=== PATIENT | male | born 1945 | race Caucasian/White ===

== ENCOUNTER → 2020-08-15 | Outpatient (CLI) | payer MEDICARE | END | disposition home or self-care (01) | LOC: CARD 12:41 | PROVIDERS: ATTEND Specialist | DX: R00.1 Bradycardia, unspecified (principal); G60.9 Hereditary and idiopathic neuropathy, unspecified | CPT/HCPCS: 93005 ==

== ENCOUNTER 2021-02-19 12:33 | Emergency (ER) | payer MEDICARE ==
[~2021-02-19] VITALS: Ht 175.3 cm; Wt 83.0 kg
--- NOTE | 2021-02-19 12:53 | NUR ---
SYMPTOMS BEGAN WEDNESDAY. PT WAS HAVING TROUBLE SPEAKING SINCE YESTERDAY. PT CANT REMEMBER NAME, BIRTHDAY AND WAS TRYING TO OPEN DOOR INSTEAD OF ROLLING DOWN WINDOW. PT HAS TROUBLE EXPRESSING WHAT HE WANTS TO SAY. REPORTS VISION CHANGES, TROUBLE SWALLOWING, UNSTEADY AMBULATION. . DENIES HEADACHE, CP HX OF STROKE IN 2013.
[2021-02-19] MEDS ORDERED: SODIUM CHLORIDE FLUSH 10ML SYR IVF ONE (13:00)
[2021-02-19 13:07] LABS: BASOPHILS % (AUTO) 1 % (0-1); EOSINOPHILS % (AUTO) 1 % (1-7); LYMPHOCYTES % (AUTO) 30 % (22-44); MEAN CORPUSCULAR HEMOGLOBIN 30.4 pg (27.5-34.5); MEAN CORPUSCULAR HGB CONC 33.3 g/dL (33.2-36.2); MEAN PLATELET VOLUME 8.4 fL (7.4-10.4); MONOCYTES % (AUTO) 12 % (2-9); NEUTROPHILS % (AUTO) 57 % (42-75); PLATELET COUNT 252 x10^3/uL (130-400); RED BLOOD COUNT 4.66 x10^6/uL (4.38-5.82); RED CELL DISTRIBUTION WIDTH 14.3 % (9.4-14.8)
[2021-02-19 13:09] LABS: MD NO
--- NOTE | 2021-02-19 13:10 | NUR ---
PT OFF UNIT IN IMAGING.
[2021-02-19 13:18] LABS: ALANINE AMINOTRANSFERASE 24 U/L (12-78); ALBUMIN 3.8 g/dL (3.4-5.0); ANION GAP 2 mmol/L (5-15); CALCIUM 8.8 mg/dL (8.5-10.1); CHLORIDE 101 mmol/L (98-107)
[2021-02-19 13:23] LABS: ALKALINE PHOSPHATASE 108 U/L (45-117); BILIRUBIN,TOTAL 0.3 mg/dL (0.2-1.0); CREATININE 0.82 mg/dL (0.7-1.3); TOTAL PROTEIN 7.2 g/dL (6.4-8.2); TROPONIN I < 0.015 ng/mL (0.000-0.045)
--- NOTE | 2021-02-19 13:54 | NUR ---
straight catheter performed. obtained ua. pt was able to swallow 90 ml of water. tolerated well. pt off unit now headed to imaging
[2021-02-19 14:00] LABS: MICROSCOPIC NOT IND
[2021-02-19 16:08] VITALS: BP 127/85
--- NOTE | 2021-02-19 16:12 | NUR ---
DR GARCIA AT BEDSIDE
[2021-02-19 16:15] LABS: SALICYLATE LEVEL 1.9 mg/dL (2.8-20.0)
[2021-02-19 16:15] LABS: AMPHETAMINE SCREEN, URINE Negative (Negative); BARBITURATE SCREEN, URINE Negative (Negative); BENZODIAZEPINE SCREEN, URINE Negative (Negative); CANNABINOID SCREEN, URINE Negative (Negative); COCAINE SCREEN, URINE Negative (Negative); METHADONE SCREEN, URINE Positive (Negative); OPIATE SCREEN, URINE Negative (Negative)
[2021-02-19 16:43] LABS: FREE T4 (FREE THYROXINE) 1.19 ng/dL (0.76-1.46)
--- NOTE | 2021-02-19 17:07 | NUR ---
PT LEFT AMA AFTER SPEAKING TO MD. UNABLE TO GET LAST SET OF VITALS. PT SIGNED AMA FORM
[2021-02-20] MEDS ORDERED: SIMV10TA18 PO (00:42)
[2021-02-20] MEDS ORDERED: METH10TA3 PO (00:42)
[2021-02-20] MEDS ORDERED: PREG50CA58 PO (00:42)
[2021-02-20] MEDS ORDERED: DOCU-131 PO (01:28)
[2021-02-21] MEDS ORDERED: LEVE500T53 PO (09:36)
== END 2021-02-19 17:09 | disposition left against medical advice (07) ==
LOC: ED 13:47 → SUATTDRO 16:02 → EDIP 16:03 → UNDOADMIN 16:03 → ED 17:03
PROVIDERS: ATTEND Family Medicine
DX: R47.89 Other speech disturbances (principal); R51.9 Headache, unspecified; R06.89 Other abnormalities of breathing; R00.1 Bradycardia, unspecified
CPT/HCPCS: 70450; 70551; 71045; 80053; 80299; 80307; 80320; 80329; 81003; 82140; 82962; 84439; 84443; 84481; 84484; 85025; 93005; 99285; G0480

== ENCOUNTER 2021-02-24 05:30 | Inpatient (IN) | payer MEDICARE ==
[~2021-02-24] VITALS: Ht 172.7 cm; Wt 74.0 kg
[~2021-02-24 05:30] MED LIST: DOCU-131 PO; LEVE500T53 PO; METH10TA3 PO; PREG50CA58 PO; SIMV10TA18 PO
--- NOTE | 2021-02-24 05:55 | NUR ---
PT CAME IN WITH . COMPLAINT OF INCREASED NUMBER OF SEIZURE ACTIVITY AND HALLUCINATIONS. PT WAS D/C FROM HOSPITAL ON Wednesday02/21/21. PT COMPLAIN OF RIVAS AND CONSTIPATION WELL. PT HOOKED UP TO ALL MONITORS, RESTING COMFORTABLY ON GURNEY
[2021-02-24] MEDS ORDERED: LORazepam 2 MG/ML, 1ML IV ONE (06:00)
[2021-02-24] MEDS ORDERED: SODIUM CHLORIDE FLUSH 10ML SYR IVF ONE (06:00)
--- NOTE | 2021-02-24 06:16 | NUR ---
PT GOT A 20 G IV IN THE LEFT AC, LABS WERE DRAWN WHEN IV WAS PLACED. PT WAS TAKEN TO RADIOLOGY FOR CT AND XRAY BY TRANSPORT.
[2021-02-24 06:33] LABS: BASOPHILS % (AUTO) 1 % (0-1); EOSINOPHILS % (AUTO) 2 % (1-7); LYMPHOCYTES % (AUTO) 28 % (22-44); MEAN CORPUSCULAR HEMOGLOBIN 30.3 pg (27.5-34.5); MEAN CORPUSCULAR HGB CONC 33.3 g/dL (33.2-36.2); MEAN PLATELET VOLUME 8.2 fL (7.4-10.4); MONOCYTES % (AUTO) 9 % (2-9); NEUTROPHILS % (AUTO) 62 % (42-75); PLATELET COUNT 277 x10^3/uL (130-400); RED BLOOD COUNT 5.07 x10^6/uL (4.38-5.82); RED CELL DISTRIBUTION WIDTH 14.5 % (9.4-14.8)
[2021-02-24 06:38] LABS: MD NO
[2021-02-24 06:40] LABS: ALANINE AMINOTRANSFERASE 26 U/L (12-78); ALBUMIN 3.9 g/dL (3.4-5.0); ANION GAP 5 mmol/L (5-15); CALCIUM 8.9 mg/dL (8.5-10.1); CHLORIDE 100 mmol/L (98-107); CREATININE 0.87 mg/dL (0.7-1.3)
--- NOTE | 2021-02-24 06:42 | NUR ---
PT BLADDER SCANNED, >667 ML MEAUSURED
--- NOTE | 2021-02-24 06:49 | NUR ---
Report received from JOHN San and JOHN Lamar with care assumed.
[2021-02-24 07:06] LABS: ALKALINE PHOSPHATASE 118 U/L (45-117); BILIRUBIN,TOTAL 0.7 mg/dL (0.2-1.0); TOTAL PROTEIN 7.4 g/dL (6.4-8.2)
--- NOTE | 2021-02-24 07:10 | NUR ---
Pt straight cathed with sterile technique with 16F kit and 1000mL uop obtained. Sample sent for UA. Admitting MD arrived at bedside just as cath was completed and is present for assessment at this time. Witnessed sz activity during cath procedure by this RN. Pt with head turned and looking up to the R without other symptoms. Sz lasted approximately 20 seconds with ability to speak during and after but disoriented. states this is a normal progression of his sz activity. Possible constipation reported but not confirmed, and pt unable to answer accurately. Noted SB at 53 on monitor without ectopy with HTN present and denies any pain.
[2021-02-24] MEDS ORDERED: POLYETHYLENE GLYCOL 17 GM PACKET PO PRN (07:30)
[2021-02-24] MEDS ORDERED: ACETAMINOPHEN 325 MG TABLET PO PRN (07:30)
[2021-02-24 07:31] LABS: MICROSCOPIC NOT IND
--- NOTE | 2021-02-24 07:31 | NUR ---
Report given to Ashley RN and pt readied for transport to floor.
[2021-02-24] MEDS ORDERED: ASPI-963 PO (07:33)
[2021-02-24] MEDS ORDERED: OMEG-14 PO (07:33)
[2021-02-24 07:47] LABS: C-REACTIVE PROTEIN, QUANT 0.07 mg/dL (0.02-0.49)
[2021-02-24 08:25] VITALS: BP 176/88
[2021-02-24 08:42] VITALS: BP 148/71
[2021-02-24] MEDS ORDERED: LEVETIRACETAM 500 MG TABLET PO SCH ×2 (09:00→11:00)
[2021-02-24] MEDS: ASPIRIN 81 MG TABLET EC PO SCH (09:36)
[2021-02-24] MEDS: SENNA/DOCUSATE TABLET PO SCH (09:37)
[2021-02-24] MEDS: METHADONE 10 MG TABLET PO SCH ×2 (09:37→20:50)
[2021-02-24 10:15] LABS: AMPHETAMINE SCREEN, URINE Negative (Negative); BARBITURATE SCREEN, URINE Negative (Negative); BENZODIAZEPINE SCREEN, URINE Negative (Negative); CANNABINOID SCREEN, URINE Negative (Negative); COCAINE SCREEN, URINE Negative (Negative); METHADONE SCREEN, URINE Positive (Negative); OPIATE SCREEN, URINE Negative (Negative)
[2021-02-24] MEDS ORDERED: PINK LADY ENEMA 490 ML BOTTLE PR ONE (11:00)
[2021-02-24 13:00] VITALS: BP 131/84
[2021-02-24] MEDS ORDERED: GADOTERATE 7.5 MMOL/15ML SYR ONE (15:13)
[2021-02-24 18:19] VITALS: BP 153/73
[2021-02-24] MEDS: MAGNESIUM CITRATE 300ML ORAL SOL PO PRN (18:41)
[2021-02-24] MEDS: PREGABALIN 50 MG CAP PO SCH (20:50)
[2021-02-24] MEDS: SIMVASTATIN 10 MG TABLET PO SCH (20:50)
[2021-02-24] MEDS: LEVETIRACETAM 500 MG TABLET PO SCH (20:51)
[2021-02-25] MEDS: MAGNESIUM CITRATE 300ML ORAL SOL PO PRN (00:10)
[2021-02-25 00:41] VITALS: BP 106/64
[2021-02-25 07:24] VITALS: BP 96/66
[2021-02-25] MEDS: SENNA/DOCUSATE TABLET PO SCH (09:00)
[2021-02-25] MEDS: METHADONE 10 MG TABLET PO SCH ×2 (09:54→20:42)
[2021-02-25] MEDS: ASPIRIN 81 MG TABLET EC PO SCH (09:54)
[2021-02-25] MEDS: LEVETIRACETAM 500 MG TABLET PO SCH ×2 (09:55→20:42)
[2021-02-25] MEDS: DOCUSATE 100 MG CAPSULE PO SCH ×2 (11:50→20:36)
[2021-02-25] MEDS: ENOXAPARIN 40 MG/0.4 ML SQ SCH (11:50)
[2021-02-25] MEDS: POLYETHYLENE GLYCOL 17 GM PACKET PO SCH (11:51)
[2021-02-25 14:05] VITALS: BP 105/60
[2021-02-25 18:54] VITALS: BP 130/65
[2021-02-25] MEDS: SIMVASTATIN 10 MG TABLET PO SCH (20:42)
[2021-02-25] MEDS: PREGABALIN 50 MG CAP PO SCH (20:42)
[2021-02-26 00:08] VITALS: BP 102/65
[2021-02-26 05:48] LABS: BASOPHILS % (AUTO) 0 % (0-1); EOSINOPHILS % (AUTO) 3 % (1-7); LYMPHOCYTES % (AUTO) 44 % (22-44); MEAN CORPUSCULAR HEMOGLOBIN 30.2 pg (27.5-34.5); MEAN CORPUSCULAR HGB CONC 32.8 g/dL (33.2-36.2); MEAN PLATELET VOLUME 8.3 fL (7.4-10.4); MONOCYTES % (AUTO) 11 % (2-9); NEUTROPHILS % (AUTO) 42 % (42-75); PLATELET COUNT 274 x10^3/uL (130-400); RED BLOOD COUNT 4.77 x10^6/uL (4.38-5.82); RED CELL DISTRIBUTION WIDTH 14.7 % (9.4-14.8)
[2021-02-26 05:49] LABS: MD NO
[2021-02-26 06:03] LABS: CHLORIDE 104 mmol/L (98-107)
[2021-02-26 06:20] LABS: ALANINE AMINOTRANSFERASE 23 U/L (12-78); ALBUMIN 3.2 g/dL (3.4-5.0); ALKALINE PHOSPHATASE 97 U/L (45-117); ANION GAP 3 mmol/L (5-15); BILIRUBIN,TOTAL 0.6 mg/dL (0.2-1.0); CALCIUM 8.1 mg/dL (8.5-10.1); CREATININE 1.02 mg/dL (0.7-1.3); T4 (THYROXINE) 7.9 mcg/dL (4.5-12.1); TOTAL PROTEIN 6.1 g/dL (6.4-8.2)
[2021-02-26 06:58] VITALS: BP 100/65
[2021-02-26] MEDS: METHADONE 10 MG TABLET PO SCH ×2 (07:52→21:19)
[2021-02-26] MEDS: ASPIRIN 81 MG TABLET EC PO SCH (07:52)
[2021-02-26] MEDS: POLYETHYLENE GLYCOL 17 GM PACKET PO SCH (07:52)
[2021-02-26] MEDS: LEVETIRACETAM 500 MG TABLET PO SCH ×2 (07:52→21:19)
[2021-02-26] MEDS: SENNA/DOCUSATE TABLET PO SCH (09:00)
[2021-02-26] MEDS: DOCUSATE 100 MG CAPSULE PO SCH ×2 (09:00→21:19)
[2021-02-26] MEDS: ENOXAPARIN 40 MG/0.4 ML SQ SCH (11:21)
[2021-02-26 13:04] VITALS: BP 101/65
[2021-02-26 20:06] VITALS: BP 108/69
[2021-02-26 20:16] VITALS: BP 147/62
[2021-02-26] MEDS: SIMVASTATIN 10 MG TABLET PO SCH (21:19)
[2021-02-26] MEDS: PREGABALIN 50 MG CAP PO SCH (21:19)
[2021-02-27 00:58] VITALS: BP 139/57
[2021-02-27 08:07] VITALS: BP 112/72
[2021-02-27] MEDS: DOCUSATE 100 MG CAPSULE PO SCH ×2 (09:47→21:31)
[2021-02-27] MEDS: SENNA/DOCUSATE TABLET PO SCH (09:48)
[2021-02-27] MEDS: LEVETIRACETAM 500 MG TABLET PO SCH ×2 (09:50→21:32)
[2021-02-27] MEDS: ASPIRIN 81 MG TABLET EC PO SCH (09:51)
[2021-02-27] MEDS: METHADONE 10 MG TABLET PO SCH ×2 (09:51→21:31)
[2021-02-27] MEDS: POLYETHYLENE GLYCOL 17 GM PACKET PO SCH (09:52)
[2021-02-27] MEDS: ENOXAPARIN 40 MG/0.4 ML SQ SCH (11:00)
[2021-02-27 13:55] VITALS: BP 133/78
[2021-02-27 19:25] VITALS: BP 130/71
[2021-02-27] MEDS: SIMVASTATIN 10 MG TABLET PO SCH (21:31)
[2021-02-27] MEDS: PREGABALIN 50 MG CAP PO SCH (21:31)
[2021-02-28 01:24] VITALS: BP 110/63
[2021-02-28 07:10] VITALS: BP 122/69
[2021-02-28] MEDS: METHADONE 10 MG TABLET PO SCH ×2 (08:47→20:51)
[2021-02-28] MEDS: ASPIRIN 81 MG TABLET EC PO SCH (08:48)
[2021-02-28] MEDS: DOCUSATE 100 MG CAPSULE PO SCH ×2 (08:48→20:52)
[2021-02-28] MEDS: POLYETHYLENE GLYCOL 17 GM PACKET PO SCH (08:49)
[2021-02-28] MEDS: LEVETIRACETAM 500 MG TABLET PO SCH ×2 (08:49→20:51)
[2021-02-28] MEDS: SENNA/DOCUSATE TABLET PO SCH (08:50)
[2021-02-28] MEDS: ENOXAPARIN 40 MG/0.4 ML SQ SCH (11:00)
[2021-02-28 12:19] VITALS: BP 150/79
[2021-02-28] MEDS ORDERED: LEVE500T53 PO (13:08)
[2021-02-28 19:44] VITALS: BP 135/75
[2021-02-28] MEDS: SIMVASTATIN 10 MG TABLET PO SCH (20:51)
[2021-02-28] MEDS: PREGABALIN 50 MG CAP PO SCH (20:51)
[2021-03-01 01:30] VITALS: BP 150/85
[2021-03-01 06:45] VITALS: BP 129/67
[2021-03-01] MEDS: POLYETHYLENE GLYCOL 17 GM PACKET PO SCH (10:53)
[2021-03-01] MEDS: ENOXAPARIN 40 MG/0.4 ML SQ SCH (10:54)
[2021-03-01] MEDS: LEVETIRACETAM 500 MG TABLET PO SCH ×2 (10:54→20:41)
[2021-03-01] MEDS: ASPIRIN 81 MG TABLET EC PO SCH (10:54)
[2021-03-01] MEDS: DOCUSATE 100 MG CAPSULE PO SCH ×2 (10:55→20:40)
[2021-03-01] MEDS: METHADONE 10 MG TABLET PO SCH ×2 (10:55→20:41)
[2021-03-01] MEDS: SENNA/DOCUSATE TABLET PO SCH (10:55)
[2021-03-01 12:36] VITALS: BP 142/90
[2021-03-01 20:16] VITALS: BP 144/76
[2021-03-01] MEDS: PREGABALIN 50 MG CAP PO SCH (20:41)
[2021-03-01] MEDS: SIMVASTATIN 10 MG TABLET PO SCH (20:41)
[2021-03-02 00:14] VITALS: BP 154/76
[2021-03-02 07:01] VITALS: BP 132/87
[2021-03-02] MEDS: ASPIRIN 81 MG TABLET EC PO SCH (09:00)
[2021-03-02] MEDS: SENNA/DOCUSATE TABLET PO SCH (09:28)
[2021-03-02] MEDS: POLYETHYLENE GLYCOL 17 GM PACKET PO SCH (09:28)
[2021-03-02] MEDS: DOCUSATE 100 MG CAPSULE PO SCH ×2 (09:28→20:02)
[2021-03-02] MEDS: METHADONE 10 MG TABLET PO SCH ×2 (09:28→20:02)
[2021-03-02] MEDS: LEVETIRACETAM 500 MG TABLET PO SCH ×2 (09:28→20:02)
[2021-03-02] MEDS: ENOXAPARIN 40 MG/0.4 ML SQ SCH (10:39)
[2021-03-02 13:06] VITALS: BP 133/67
[2021-03-02 19:46] VITALS: BP 134/53
[2021-03-02] MEDS: PREGABALIN 50 MG CAP PO SCH (20:02)
[2021-03-02] MEDS: SIMVASTATIN 10 MG TABLET PO SCH (20:03)
[2021-03-03 02:40] VITALS: BP 135/74
[2021-03-03 07:42] VITALS: BP 135/76
[2021-03-03] MEDS: DOCUSATE 100 MG CAPSULE PO SCH (09:14)
[2021-03-03] MEDS: METHADONE 10 MG TABLET PO SCH (09:14)
[2021-03-03] MEDS: ASPIRIN 81 MG TABLET EC PO SCH (09:14)
[2021-03-03] MEDS: SENNA/DOCUSATE TABLET PO SCH (09:14)
[2021-03-03] MEDS: LEVETIRACETAM 500 MG TABLET PO SCH (09:15)
[2021-03-03] MEDS: POLYETHYLENE GLYCOL 17 GM PACKET PO SCH (09:19)
[2021-03-03] MEDS: ENOXAPARIN 40 MG/0.4 ML SQ SCH (11:23)
[2021-03-03 12:26] VITALS: BP 150/66
== END 2021-03-03 14:28 | DRG 101 ==
LOC: ED 06:04 → EDIP 06:57 → 4EST 08:12
PROVIDERS: ADMIT Internal Medicine; ATTEND Hospitalist
DX: G40.109 Localization-related (focal) (partial) symptomatic epilepsy and epileptic syndromes with simple partial seizures, not intractable, without status epilepticus (principal); G93.40 Encephalopathy, unspecified; I69.359 Hemiplegia and hemiparesis following cerebral infarction affecting unspecified side; E87.1 Hypo-osmolality and hyponatremia; R33.9 Retention of urine, unspecified; G89.4 Chronic pain syndrome; J44.9 Chronic obstructive pulmonary disease, unspecified; F17.210 Nicotine dependence, cigarettes, uncomplicated; G62.9 Polyneuropathy, unspecified; H53.461 Homonymous bilateral field defects, right side; H54.61 Unqualified visual loss, right eye, normal vision left eye; K59.00 Constipation, unspecified; Z79.891 Long term (current) use of opiate analgesic; Z79.899 Other long term (current) drug therapy; Z82.3 Family history of stroke; Z85.46 Personal history of malignant neoplasm of prostate; Z91.81 History of falling; R00.1 Bradycardia, unspecified; R94.6 Abnormal results of thyroid function studies; R73.9 Hyperglycemia, unspecified; E86.0 Dehydration
CPT/HCPCS: 36415; 70450; 70553; 74018; 80053; 80307; 81003; 82140; 82306; 82607; 82962; 84436; 84443; 84481; 85025; 85651; 86140; 95816; G0378; J1650; 92523-GN; A9575